=== PATIENT | male | born 1955 | race American Indian/Alaskan Native ===

== ENCOUNTER 2018-07-26 09:12 | Day surgery (SDC) | payer BC ==
[2018-07-26] MEDS ORDERED: Lactated Ringer's 500 ML IV ONE (11:50)
[2018-07-26 13:10] VITALS: TEMP 98.2; O2SAT 100
[2018-07-26 13:14] VITALS: BP 135/86; PULSE 70; RESP 16
== END 2018-07-26 13:35 | disposition home or self-care (01) ==
LOC: C.ENDO 09:12
PROVIDERS: ATTEND Internal Medicine Gastroenterology
DX: Z80.0 Family history of malignant neoplasm of digestive organs (principal); Z12.11 Encounter for screening for malignant neoplasm of colon; D12.2 Benign neoplasm of ascending colon; D12.3 Benign neoplasm of transverse colon; K64.8 Other hemorrhoids
CPT/HCPCS: 45385; 88305; J7120